=== PATIENT | male | born 1955 | race American Indian/Alaskan Native ===

== ENCOUNTER 2021-05-19 19:39 | Emergency (ER) | payer BC ==
[2021-05-19] MEDS ORDERED: NITROGLYCERIN 0.4 MG TAB SUBL SL PRN (22:03)
[2021-05-19 22:34] LABS: Basophils # (Auto) 0.1 K/mm3 (0.0-0.1); Basophils % (Auto) 1.3 % (0.0-1.8); Eosinophils # (Auto) 0.1 K/mm3 (0.0-0.4); Eosinophils % (Auto) 0.7 % (0.0-4.3); Lymphocytes # (Auto) 3.3 K/mm3 (1.2-5.4); Lymphocytes % (Auto) 29.9 % (13.4-35.0); Mean Corpuscular HGB Conc 30 % (32-34); Mean Corpuscular Volume 70 fl (84-94); Monocytes # (Auto) 0.7 K/mm3 (0.0-0.8); Monocytes % (Auto) 6.6 % (0.0-7.3); Platelet Count 221 K/mm3 (140-440); Red Blood Count 4.65 M/mm3 (3.65-5.03); Red Cell Distribution Width 19.1 % (13.2-15.2)
[2021-05-19 22:39] LABS: Hematocrit 32.6 % (35.5-45.6); Hemoglobin 9.6 gm/dl (11.8-15.2)
[2021-05-19 22:45] LABS: Partial Thromboplastin Time 30.2 Sec. (24.2-36.6)
--- NOTE | 2021-05-19 22:51 | Emergency Department Report ---
ED Chest Pain HPI - General Chief Complaint: Chest Pain Stated Complaint: CHEST PAIN Time Seen by Provider: 05/19/21 21:52 Source: patient, old records reviewed Mode of arrival: Ambulatory Limitations: No Limitations - History of Present Illness Initial Comments: No previous medical record available for comparison 64-year-old male with a past medical history of hypertension, and smoker presents to the hospital complaints of intermittent left sided chest pain since yesterday. Patient states his chest tightness started yesterday while at rest while watching TV. Pain has occurred intermittently throughout the past 2 days without significant aggravating or alleviating factors. Pain radiates across the chest. He denies associated nausea, vomiting, or diaphoresis. Patient has been off of hypertension medication for last 3 years since his blood pressure had improved. He has been compliant with his yearly physical examinations. Patient had a normal treadmill stress test approximately 4 years ago. He has a significant family history of CAD. His brother had bypass surgery at age 58 and his mother had an WI. Patient took aspirin 500 mg prior to arrival. He does not take aspirin daily. He is currently pain-free PMD: Dr. Solis pt seen and discharged during [facility] downtime - Related Data Allergies Allergy/AdvReac Type Severity Reaction Status Date / Time No Known Allergies Allergy Unverified 05/20/21 03:38 Heart Score - HEART Score History: Slightly suspicious EKG: Non-specific Age: 45-65 Risk factors: > 3 risk factors or hx of atherosclerotic disease Troponin: < normal limit HEART Score: 4 - EKG Read Time Time EKG Completed: 19:49 EKG Read Time: 19:53 ED Review of Systems ROS: Stated complaint: CHEST PAIN Other details as noted in HPI Comment: All other systems reviewed and negative ED Past Medical Hx - Past Medical History Hx Hypertension: Yes - Surgical History Additional Surgical History: HIP SURGERY ED Physical Exam - General Limitations: No Limitations - Other Other exam information: General: No acute distress Head: Atraumatic Eyes: normal appearance ENT: Moist mucous membranes Neck: Normal appearance, no midline tenderness Chest: Clear to auscultation bilaterally, chest wall nontender CV: Regular rate and rhythm Abdomen: Soft, normal bowel sounds, nontender, nondistended, no rebound or guarding Back: Normal inspection Extremity: Normal inspection, full range of motion, no calf tenderness or leg edema Neuro: Alert O x 3, no facial asymmetry, speech clear, no gross motor sensory deficit Psych: Appropriate behavior Skin: No rash ED Course Vital Signs 05/19/21 19:42 Temperature 97.8 F Pulse Rate 87 Respiratory 18 Rate Blood Pressure 140/76 O2 Sat by Pulse 99 Oximetry LESTER score - Lester Score Age > 65: (0) No Aspirin use within the Past 7 Days: (1) Yes 3 or more CAD Risk Factors: (1) Yes 2 or more Angina events in past 24 hrs: (1) Yes Known CAD with more than 50% Stenosis: (0) No Elevated Cardiac Markers: (0) No ST Deviation Greater than 0.5mm: (0) No LESTER Score: 3 ED Medical Decision Making - Lab Data Result diagrams: 05/19/21 22:19 05/19/21 22:19 Lab Results 05/19/21 05/19/21 05/19/21 Range/Units 22:19 22:19 22:19 WBC 11.2 H (4.5-11.0) K/mm3 RBC 4.65 (3.65-5.03) M/mm3 Hgb 9.6 L (11.8-15.2) gm/dl Hct 32.6 L (35.5-45.6) % MCV 70 L (84-94) fl MCH 21 L (28-32) pg MCHC 30 L (32-34) % RDW 19.1 H (13.2-15.2) % Plt Count 221 (140-440) K/mm3 Lymph % (Auto) 29.9 (13.4-35.0) % [place] % (Auto) 6.6 (0.0-7.3) % Eos % (Auto) 0.7 (0.0-4.3) % Baso % (Auto) 1.3 (0.0-1.8) % Lymph # (Auto) 3.3 (1.2-5.4) K/mm3 [place] # (Auto) 0.7 (0.0-0.8) K/mm3 Eos # (Auto) 0.1 (0.0-0.4) K/mm3 Baso # (Auto) 0.1 (0.0-0.1) K/mm3 Seg Neutrophils % 61.5 (40.0-70.0) % Seg Neutrophils # 6.9 (1.8-7.7) K/mm3 PT 14.3 (12.2-14.9) Sec. INR 1.00 (0.87-1.13) APTT 30.2 (24.2-36.6) Sec. Sodium 142 (137-145) mmol/L Potassium 3.0 L (3.6-5.0) mmol/L Chloride 104.2 (98-107) mmol/L Carbon Dioxide 21 L (22-30) mmol/L Anion Gap 20 mmol/L BUN 5 L (9-20) mg/dL Creatinine 0.7 L (0.8-1.3) mg/dL Estimated GFR > 60 ml/min BUN/Creatinine Ratio 7 % Glucose 91 (75-100) mg/dL Calcium 8.4 (8.4-10.2) mg/dL Total Bilirubin 0.30 (0.1-1.2) mg/dL AST 18 (5-40) units/L ALT 8 (7-56) units/L Alkaline Phosphatase 67 (35-129) units/L Troponin T < 0.010 (0.00-0.029) ng/mL Total Protein 7.9 (6.3-8.2) g/dL Albumin 3.5 L (3.9-5) g/dL Albumin/Globulin Ratio 0.8 % Triglycerides (2-149) mg/dL Cholesterol (50-199) mg/dL LDL Cholesterol Direct (50-130) mg/dL HDL Cholesterol (40-59) mg/dL Cholesterol/HDL Ratio % 12/14/21 Range/Units 22:19 WBC (4.5-11.0) K/mm3 RBC (3.65-5.03) M/mm3 Hgb (11.8-15.2) gm/dl Hct (35.5-45.6) % MCV (84-94) fl MCH (28-32) pg MCHC (32-34) % RDW (13.2-15.2) % Plt Count (140-440) K/mm3 Lymph % (Auto) (13.4-35.0) % [place] % (Auto) (0.0-7.3) % Eos % (Auto) (0.0-4.3) % Baso % (Auto) (0.0-1.8) % Lymph # (Auto) (1.2-5.4) K/mm3 [place] # (Auto) (0.0-0.8) K/mm3 Eos # (Auto) (0.0-0.4) K/mm3 Baso # (Auto) (0.0-0.1) K/mm3 Seg Neutrophils % (40.0-70.0) % Seg Neutrophils # (1.8-7.7) K/mm3 PT (12.2-14.9) Sec. INR (0.87-1.13) APTT (24.2-36.6) Sec. Sodium (137-145) mmol/L Potassium (3.6-5.0) mmol/L Chloride (98-107) mmol/L Carbon Dioxide (22-30) mmol/L Anion Gap mmol/L BUN (9-20) mg/dL Creatinine (0.8-1.3) mg/dL Estimated GFR ml/min BUN/Creatinine Ratio % Glucose (75-100) mg/dL Calcium (8.4-10.2) mg/dL Total Bilirubin (0.1-1.2) mg/dL AST (5-40) units/L ALT (7-56) units/L Alkaline Phosphatase (35-129) units/L Troponin T (0.00-0.029) ng/mL Total Protein (6.3-8.2) g/dL Albumin (3.9-5) g/dL Albumin/Globulin Ratio % Triglycerides 163 H (2-149) mg/dL Cholesterol 207 H (50-199) mg/dL LDL Cholesterol Direct 110 (50-130) mg/dL HDL Cholesterol 89 H (40-59) mg/dL Cholesterol/HDL Ratio 2.32 % - EKG Data -: EKG Interpreted by Nd EKG shows normal: sinus rhythm, intervals (normal), QRS complexes (normal), ST-T waves (inf, lat t inversions, no stemi) - EKG Data When compared to previous EKG there are: previous EKG unavailable - Radiology Data Radiology results: report reviewed XR chest 1V ap INDICATION / CLINICAL INFORMATION: Chest Pain. COMPARISON: None available. FINDINGS: SUPPORT DEVICES: None. HEART /PULMONARY VASCULATURE: There is cardiac enlargement with congestion of the pulmonary vasculature. LUNGS / PLEURA: No acute airspace consolidation. No sizable pleural effusion. No pneumothorax. ADDITIONAL FINDINGS: No significant additional findings. IMPRESSION: Cardiac enlargement with pulmonary vasculature congestion, suggestive of CHF. - Medical Decision Making It was recommended that patient be admitted to the hospital for further cardiac work-up. Heart score equals 5. Patient has been pain-free during ED stay. EKG shows T wave inversions in inferior and lateral without previous for comparison. Initial troponin negative. No significant lab abnormality other than mild hypokalemia. Patient does not currently take any medications. Plan was to adm it patient for inpatient cardiac work-up. I explained this extensively to patient and his at the bedside. He prefers to follow-up as an outpatient understanding that he is at risk for WI and sudden . He was encouraged to return if symptoms worsen and will be provided outpatient follow-up with cardiology including stress test recommendation faxed to [facility] product design specialist. Patient will be signed out AGAINST MEDICAL ADVICE. He is encouraged to take aspirin 325 mg daily. He also has mild hypokalemia and received 40 mEq of potassium in the ED prior to discharge. Patient instructed to increase potassium through diet i.e. bananas. Critical Care Time: No Critical care attestation.: If time is entered above; I have spent that time in minutes in the direct care of this critically ill patient, excluding procedure time. ED Disposition Clinical Impression: Chest pain, Hypokalemia Disposition: ADMITTED INPATIENT Is pt being admited?: No Does the pt Need Aspirin: No Condition: Stable Additional Instructions: d/c instructions provided during downtime. pt instructed to take asa 325 mg daily. Instructed to eat bananas daily for hypokalemia. Chest Pain: Care Instructions Your Care Instructions There are many things that can cause chest pain. Some are not serious and will get better on their own in a few days. But some kinds of chest pain need more testing and treatment. Your doctor may have recommended a follow-up visit in the next 8 to 12 hours. If you are not getting better, you may need more tests or treatment. Even though your doctor has released you, you still need to watch for any problems. The doctor carefully checked you, but sometimes problems can develop later. If you have new symptoms or if your symptoms do not get better, get medical care right away. If you have worse or different chest pain or pressure that lasts more than 5 minutes or you passed out (lost consciousness), call 911 or seek other emergency help right away. A medical visit is only one step in your treatment. Even if you feel better, you still need to do what your doctor recommends, such as going to all suggested follow-up appointments and taking medicines exactly as directed. This will help you recover and help prevent future problems. How can you care for yourself at home? Rest until you feel better. Take your medicine exactly as prescribed. Call your doctor or nurse call line if you think you are having a problem with your medicine. Do not drive after taking a prescription pain medicine. When should you call for help? Call 911 if: You passed out (lost consciousness). You have severe difficulty breathing. You have symptoms of a heart attack. These may include: Chest pain or pressure, or a strange feeling in your chest. Sweating. Shortness of breath. Nausea or vomiting. Pain, pressure, or a strange feeling in your back, neck, jaw, or upper belly or in one or both shoulders or arms. Light-headedness or sudden weakness. A fast or irregular heartbeat. After you call 911, the emergency operator may tell you to chew 1 adult-strength or 2 to 4 low-dose aspirin. Wait for an ambulance. Do not try to drive yourself. Call your doctor or nurse call line today if: You have any trouble breathing. Your chest pain gets worse. You are dizzy or light-headed, or you feel like you may faint. You are not getting better as expected. You are having new or different chest pain. Referrals: DAVID SOLIS MD [Primary Care Provider] - 3-5 Days Forms: AMA Form
[2021-05-19 22:59] LABS: Alanine Aminotransferase 8 units/L (7-56); Albumin 3.5 g/dL (3.9-5); Blood Urea Nitrogen 5 mg/dL (9-20); Calcium 8.4 mg/dL (8.4-10.2); Hemolysis Index 9
[2021-05-20] MEDS ORDERED: POTASSIUM CHLORIDE ER 20 MEQ TAB PO ONE (00:39)
--- NOTE | 2021-05-20 01:36 | XRay Report ---
XR chest 1V ap INDICATION / CLINICAL INFORMATION: Chest Pain. COMPARISON: None available. FINDINGS: SUPPORT DEVICES: None. HEART /PULMONARY VASCULATURE: There is cardiac enlargement with congestion of the pulmonary vasculatu re. LUNGS / PLEURA: No acute airspace consolidation. No sizable pleural effusion. No pneumothorax. ADDITIONAL FINDINGS: No significant additional findings. IMPRESSION: Cardiac enlargement with pulmonary vasculature congestion, suggestive of CHF. Signer Name: Luke Paul MD Signed: 05/19/2021 10:53 PM Workstation Name: [id number]
[2021-05-20 02:11] LABS: Chol/HDL Ratio 2.32 %
[2021-05-20 03:13] LABS: BUN/Creatinine Ratio 7
[2021-05-20 04:16] VITALS: BP 128/74
--- NOTE | 2021-05-20 12:25 | Electrocardiograph Report ---
[facility] Test Date: 2021-05-19 Test Time: 19:49:08 Pat Name: CHEN HULL Department: Room: Gender: M [employer]: EP : 1955 Requested By: BRIANNE VEGA Order Number: [id number] Reading MD: Edouard Ventura Measurements Intervals [place] Rate: 82 P: 58 MD: 138 QRS: 25 QRSD: 96 T: -50 QT: 378 QTc: 441 Interpretive Statements Sinus rhythm Nonspecific T abnormalities, inferior leads No previous ECG available for comparison Electronically Signed On 05-20-2021 12:24:51 EST by Edouard Ventura
== END 2021-05-20 00:30 | disposition left against medical advice (07) ==
LOC: ED 19:39
DX: R07.9 Chest pain, unspecified (principal); E87.6 Hypokalemia; I10 Essential (primary) hypertension
CPT/HCPCS: 36415; 71045; 80053; 80061; 84484; 85025; 85610; 85730; 93005; 99284